=== PATIENT | female | born 1980 | race African-American/Black ===

== ENCOUNTER 2024-08-14 05:40 | Inpatient (IN) | payer MEDICARE ==
[2024-08-09 12:00] LABS: BASOPHILS % 0.8 % (0.0-1.0); EOSINOPHILS # (AUTO) 0.3 (0.0-0.4); EOSINOPHILS % 7.1 % (0.0-6.0); HEMATOCRIT 33.1 % (34.2-44.1); HEMOGLOBIN 9.9 g/dL (12.0-16.0); LYMPHOCYTES # (AUTO) 1.6 (1.0-3.2); LYMPHOCYTES % 34.1 % (18.0-39.1); MEAN CORPUSCULAR HEMOGLOBIN 22.4 pg (28-32); MEAN CORPUSCULAR HGB CONC 29.9 g/dL (31-35); MEAN CORPUSCULAR VOLUME 75.1 fL (81-99); MONOCYTES # (AUTO) 0.4 (0.2-0.8); MONOCYTES % 9.1 % (4.4-11.3); NEUTROPHILS # (AUTO) 2.3 (2.1-6.9); NEUTROPHILS % 48.7 % (38.7-80.0); PLATELET COUNT 234 x10e3/uL (140-360); RED BLOOD COUNT 4.41 x10e6/uL (3.6-5.1); RED CELL DISTRIBUTION WIDTH 17.7 % (11.7-14.4); WHITE BLOOD COUNT 4.81 x10e3/uL (4.8-10.8)
[2024-08-09 12:23] LABS: CALCIUM 9.2 mg/dL (8.4-10.2); CREATININE, SERUM 1.46 mg/dL (0.57-1.11)
[~2024-08-14] VITALS: Ht 180.3 cm; Wt 154.2 kg
[~2024-08-14 05:40] MED LIST: AMBIEN10 MG PO; HYDRALAZINE HC100 MG PO; LASIX20 MG PO; METOPROLOL SUCC50 MG PO; XARELTO20 MG PO
[2024-08-14] MEDS: LACTATED RINGER'S 1,000 ML ONE (05:56)
[2024-08-14] MEDS ORDERED: PROPOFOL IV EMULSION 10 MG/ML 20 ML VIAL ONE (06:44)
[2024-08-14] MEDS ORDERED: LIDOCAINE HCL 2% LOCAL INJ 5 ML SDV VIAL INJ ONE (06:44)
[2024-08-14] MEDS ORDERED: ROCURONIUM BROMIDE 0 ML IV ONE (06:44)
[2024-08-14] MEDS ORDERED: FENTANYL CITRATE/PF 100MCG/2 ML INJ ONE (06:45)
[2024-08-14] MEDS ORDERED: SUCCINYLCHOLINE CHLORIDE 20 MG/ML 10ML VIAL ONE (06:45)
[2024-08-14] MEDS: SCOPOLAMINE 1 MG PATCH ONE (06:51)
[2024-08-14] MEDS: SCOPOLAMINE 1 MG PATCH TOP SCH (07:00)
[2024-08-14] MEDS ORDERED: DEXAMETHASONE SOD PHOS INJ 4 MG/ML SDV ONE (07:22)
[2024-08-14] MEDS ORDERED: METOCLOPRAMIDE HCL 10 MG/2ML VIAL ONE (07:22)
[2024-08-14] MEDS ORDERED: HYDROMORPHONE 2MG/ML ONE (07:26)
[2024-08-14] MEDS ORDERED: ACETAMINOPHEN 1000 MG/100 ML 100 ML IV ONE (07:28)
[2024-08-14] MEDS ORDERED: ROCURONIUM BROMIDE 1 ML IV ONE ×3 (07:33→08:07)
[2024-08-14] MEDS ORDERED: SUGAMMADEX SODIUM 200 MG/2 ML VIAL IV ONE (07:52)
[2024-08-14] MEDS ORDERED: ESMOLOL HCL 100MG/10ML 10 MG/ML VIAL ONE (07:57)
[2024-08-14] MEDS ORDERED: SEVOFLURANE INHAL SOLN 250 ML PEN BTL ONE (08:04)
[2024-08-14] MEDS ORDERED: PHENYLEPHRINE HCL 1% 10 MG/ML VIAL ONE (08:08)
[2024-08-14] MEDS: HYDROMORPHONE 1MG/1ML INJ ONE ×2 (09:06→09:30)
[2024-08-14] MEDS: ONDANSETRON HCL INJ 2MG/ML 2ML 2 MG/ML VIAL ONE (11:09)
[2024-08-14] MEDS: PROMETHAZINE HCL (IM) 25 MG/ML VIAL IM ONE (13:05)
[2024-08-14 15:51] VITALS: BP 140/83; PULSE 80; RESP 16; TEMP 97.4; O2SAT 98
[2024-08-14] MEDS: ONDANSETRON HCL INJ 2MG/ML 2ML 2 MG/ML VIAL IV PRN (16:18)
[2024-08-14] MEDS: HYDROCODONE/APAP 7.5MG-325MG 1 EA TAB PO PRN (16:19)
[2024-08-14] MEDS: LACTATED RINGER'S 1,000 ML IV SCH (16:22)
[2024-08-14] MEDS: Morphine 2mg Syringe 2 MG/ML SYR IV PRN (17:16)
[2024-08-14 17:34] VITALS: BP 140/83; PULSE 80; RESP 16; TEMP 97.4; O2SAT 98
[2024-08-14] MEDS: METOPROLOL SUCCINATE 50 MG TAB XL PO SCH (17:45)
[2024-08-14] MEDS: HYDRALAZINE HCL 100 MG TABLET PO SCH (17:45)
[2024-08-14] MEDS: HYDROMORPHONE 1MG/1ML INJ IV PRN (18:00)
[2024-08-14] MEDS: PROMETHAZINE 12.5MG/ NACL 0.9% 12.5 MG/50 ML BAG IV PRN (18:00)
[2024-08-14 20:00] VITALS: BP 163/92; PULSE 84; RESP 18; TEMP 97.4; O2SAT 99
[2024-08-14] MEDS: ENOXAPARIN SOD INJ 40 MG/0.4 ML SYR SC SCH (21:42)
[2024-08-14] MEDS: ZOLPIDEM TARTRATE 10 MG TAB PO PRN (22:29)
[2024-08-15] VITALS (9 sets, daily range): BP systolic 145–162; BP diastolic 89–95; PULSE 75–113; RESP 18–20; TEMP 97.4–99.3; O2SAT 97–100
[2024-08-15 06:29] LABS: BASOPHILS % 0.2 % (0.0-1.0); EOSINOPHILS % 0.1 % (0.0-6.0); HEMATOCRIT 31.1 % (34.2-44.1); HEMOGLOBIN 9.1 g/dL (12.0-16.0); LYMPHOCYTES # (AUTO) 1.5 (1.0-3.2); LYMPHOCYTES % 15.8 % (18.0-39.1); MEAN CORPUSCULAR HEMOGLOBIN 22.6 pg (28-32); MEAN CORPUSCULAR HGB CONC 29.3 g/dL (31-35); MEAN CORPUSCULAR VOLUME 77.4 fL (81-99); MONOCYTES # (AUTO) 0.7 (0.2-0.8); MONOCYTES % 7.9 % (4.4-11.3); NEUTROPHILS % 75.6 % (38.7-80.0); PLATELET COUNT 348 x10e3/uL (140-360); RED BLOOD COUNT 4.02 x10e6/uL (3.6-5.1); RED CELL DISTRIBUTION WIDTH 17.8 % (11.7-14.4); WHITE BLOOD COUNT 9.25 x10e3/uL (4.8-10.8)
[2024-08-15 07:07] LABS: ALBUMIN 3.4 g/dL (3.5-5.0); ALBUMIN/GLOBULIN RATIO 0.9 (0.8-2.0); ANION GAP 19.9 mmol/L (8-16); BILIRUBIN,TOTAL 0.3 mg/dL (0.2-1.2); CALCIUM 8.7 mg/dL (8.4-10.2); CREATININE, SERUM 1.15 mg/dL (0.57-1.11); MAGNESIUM 1.4 MG/DL (1.3-2.1); PHOSPHORUS 2.8 MG/DL (2.3-4.7); POTASSIUM 3.9 mmol/L (3.5-5.1); TOTAL PROTEIN 7.3 g/dL (6.5-8.1)
[2024-08-15] MEDS: FUROSEMIDE 20 MG TAB PO SCH (09:43)
[2024-08-15] MEDS: ONDANSETRON HCL INJ 2MG/ML 2ML 2 MG/ML VIAL IV PRN (10:26)
[2024-08-15] MEDS: FUROSEMIDE INJ 10 MG/ML 4 ML VIAL IV ONE (14:15)
[2024-08-15] MEDS: HYDROMORPHONE 1MG/1ML INJ IV PRN (17:24)
[2024-08-16 01:48] VITALS: BP 155/93; PULSE 92; RESP 18; TEMP 97.3; O2SAT 97
[2024-08-16 06:00] VITALS: BP 125/78; PULSE 90; RESP 19; TEMP 97.7; O2SAT 99
[2024-08-16 06:20] LABS: BASOPHILS % 0.4 % (0.0-1.0); EOSINOPHILS # (AUTO) 0.1 (0.0-0.4); EOSINOPHILS % 0.6 % (0.0-6.0); HEMATOCRIT 31.8 % (34.2-44.1); HEMOGLOBIN 9.5 g/dL (12.0-16.0); LYMPHOCYTES # (AUTO) 1.7 (1.0-3.2); LYMPHOCYTES % 21.5 % (18.0-39.1); MEAN CORPUSCULAR HEMOGLOBIN 22.5 pg (28-32); MEAN CORPUSCULAR HGB CONC 29.9 g/dL (31-35); MEAN CORPUSCULAR VOLUME 75.4 fL (81-99); MONOCYTES # (AUTO) 0.7 (0.2-0.8); MONOCYTES % 9.3 % (4.4-11.3); NEUTROPHILS # (AUTO) 5.4 (2.1-6.9); NEUTROPHILS % 67.8 % (38.7-80.0); PLATELET COUNT 371 x10e3/uL (140-360); RED BLOOD COUNT 4.22 x10e6/uL (3.6-5.1); RED CELL DISTRIBUTION WIDTH 18.3 % (11.7-14.4); WHITE BLOOD COUNT 7.96 x10e3/uL (4.8-10.8)
[2024-08-16 06:26] VITALS: PULSE 84; RESP 20; O2SAT 100
[2024-08-16 06:51] LABS: ALBUMIN 3.6 g/dL (3.5-5.0); ALBUMIN/GLOBULIN RATIO 0.9 (0.8-2.0); ANION GAP 17.8 mmol/L (8-16); BILIRUBIN,TOTAL 0.4 mg/dL (0.2-1.2); CALCIUM 8.8 mg/dL (8.4-10.2); CREATININE, SERUM 1.26 mg/dL (0.57-1.11); POTASSIUM 3.8 mmol/L (3.5-5.1); TOTAL PROTEIN 7.8 g/dL (6.5-8.1)
[2024-08-16 08:00] VITALS: BP 140/86; PULSE 90; RESP 18; TEMP 98.1; O2SAT 99
[2024-08-16 08:24] VITALS: BP 140/86; PULSE 90; RESP 18; TEMP 98.1; O2SAT 99
== END 2024-08-16 11:45 | disposition home or self-care (01) | DRG 620 ==
LOC: OR 05:40 → PACU V 09:18 → MED/SURG3 14:56
PROVIDERS: ADMIT Internal Medicine; ATTEND Internal Medicine
PROC: 0DQV4ZZ Repair Mesentery, Percutaneous Endoscopic Approach (ICD-10-PCS; 2024-08-14)
PROC: 0FB24ZX Excision of Left Lobe Liver, Percutaneous Endoscopic Approach, Diagnostic (ICD-10-PCS; 2024-08-14)
PROC: 0DB64Z3 Excision of Stomach, Percutaneous Endoscopic Approach, Vertical (ICD-10-PCS; principal; 2024-08-14 07:07)
PROC: 05HY33Z Insertion of Infusion Device into Upper Vein, Percutaneous Approach (ICD-10-PCS; 2024-08-15)
DX: E66.01 Morbid (severe) obesity due to excess calories (principal); I13.0 Hypertensive heart and chronic kidney disease with heart failure and stage 1 through stage 4 chronic kidney disease, or unspecified chronic kidney disease; I42.9 Cardiomyopathy, unspecified; I50.22 Chronic systolic (congestive) heart failure; Z68.42 Body mass index [BMI] 45.0-49.9, adult; I25.10 Atherosclerotic heart disease of native coronary artery without angina pectoris; D64.9 Anemia, unspecified; K44.9 Diaphragmatic hernia without obstruction or gangrene; N18.30 Chronic kidney disease, stage 3 unspecified; K20.90 Esophagitis, unspecified without bleeding; K29.70 Gastritis, unspecified, without bleeding; K76.0 Fatty (change of) liver, not elsewhere classified; N28.9 Disorder of kidney and ureter, unspecified; I48.0 Paroxysmal atrial fibrillation; R11.2 Nausea with vomiting, unspecified; R07.9 Chest pain, unspecified; Z79.01 Long term (current) use of anticoagulants; Z82.49 Family history of ischemic heart disease and other diseases of the circulatory system; Z88.1 Allergy status to other antibiotic agents
CPT/HCPCS: 36415; 71045; 80048; 80053; 81025; 83735; 83880; 84100; 84484; 85025; 88305; 88307; 88313; 88342; 93005; 94799; J0330; J0690; J1100; J1171; J1650; J1938; J2003; J2270; J2371; J2405; J2470; J2550; J2765